=== PATIENT | female | born 1990 | race African-American/Black ===

== ENCOUNTER 2024-02-04 12:58 | Emergency (ER) | payer BC, SELFPAY ==
[2024-02-04 13:00] VITALS: BP 127/76; BMI 34.8
[2024-02-04 13:18] LABS: Urine Albumin Negative (Neg - Trace); Urine Bilirubin Negative (Negative); Urine Character Clear (Clear); Urine Color Yellow; Urine Glucose Negative (Negative); Urine Ketone Negative (Negative); Urine Leukocyte Trace (Negative); Urine Nitrite Negative (Negative); Urine Occult Blood Negative (Negative); Urine Urobilinogen Negative (Neg - 1+); Urine pH 6.5 (5.0-9.0)
[2024-02-04 13:25] LABS: Urine Mucus Few; Urine Squamous Cell >30 /LPF (Few)
[2024-02-04 13:26] LABS: Urine Bacteria Few (Negative)
[2024-02-04 13:56] VITALS: BP 122/61
[2024-02-04 14:00] VITALS: BP 126/63
[2024-02-04 14:11] LABS: % Basophils 0.6 % (0-2); % Eosinophils 2.7 % (0-6); % Immature Granulocytes 0.3 % (0-0.5); % Lymphocytes 28.8 % (20.5-51.1); % Monocytes 9.3 % (1.7-9.3); % Neutrophils 58.3 % (42.2-75.2); Absolute Eosinophils 0.2 10^3/uL (0-0.7); Absolute Monocytes 0.6 10^3/uL (0.1-0.6); Absolute Neutrophils 3.9 10^3/uL (1.4-6.5); Hematocrit 31.9 % (37.0-47.0); Hemoglobin 10.5 g/dL (12.0-16.0); Mean Corp Hgb Conc. 32.9 g/dL (33.0-37.0); Mean Corpuscular Hgb 25.2 pg (27.0-31.0); Mean Corpuscular Volume 76.7 fL (81.0-99.0); Mean Platelet Volume 10.2 fL (7.4-10.4); Nucleated Red Blood Cells % 0 %; Platelet Count 383 10^3/uL (130-400); Red Blood Cell Count 4.16 10^6/uL (4.20-5.40); Red Cell Dist. Width 15.9 % (11.5-14.5); White Blood Cell Count 6.8 10^3/uL (4.8-10.8)
--- NOTE | 2024-02-04 15:09 | ED.GENMED ---
History of Present Illness
General
Chief Complaint: Abdominal Pain
Source: patient
Exam Limitations: none
Time Seen by Provider: 02/04/24 14:02
Nursing documentation reviewed up to this point in time: agreed with
History of Present Illness
History of Present Illness:
33-year-old female without significant past medical history presenting to the emergency department today with concerns of right pelvic discomfort over the past 45 days. 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
and they ordered an outpatient ultrasound but she is unable to secure any appointment in a timely fashion. She had a normal pelvic examination at the time. Denies vomiting fevers change in bowel movements.
Past History
Past History
ED Past Medical History: None
ED Past Surgical History: Other
Social History
Tobacco: Non-smoker
Alcohol: Other
Drug: None
Personal:
Living: with family
Employment: Other
Family History
Family History: Other
Review of Systems
Review of Systems
Allergies reviewed?: Yes
All Other Systems: ROS reviewed and negative except as documented in HPI and ROS
Phy Exam
Physical Exam
Physical Exam:
GENERAL: Alert , in no apparent distress
EYE: pupils equal and reactive
NECK: Supple, no significant adenopathy.
ENT: o/p clr, mmm.
CARDIAC: Regular rate and rhythm .
LUNGS: Clear breath sounds bilaterally, no acute respiratory distress, no wheezes/rales/rhonchi
ABDOMEN: Mild pain to the right lower quadrant and pelvic area. Otherwise soft, without focal tenderness, no r/g, no cvat
NEUROLOGICAL: Alert and oriented, no focal neuro deficits
SKIN: Warm and dry, skin intact.
MUSCULOSKELETAL: No edema, well perfused.
PSYCH: Normal and appropriate interaction.
Course
Orders/Labs/Results
Orders:
Orders
02/04/24 13:03
Test Result ONCE
02/04/24 13:08
Urinalysis Reflex To Culture Urgent
Date Specimen was Collected: 02/04/24
Time Specimen was Collected: 13:03
Urine Microscopic Reflex Cult Urgent
02/04/24 13:44
Complete Blood Count/With Diff Urgent
02/04/24 14:10
US Pelvis W Transvag Combined Urgent
Reason For Exam: right pelvic pain
02/04/24 15:08
Comprehensive Metabolic Panel Urgent
HCG, Serum Qualitative Screen Urgent
Lipase Urgent
02/04/24 16:21
Ketorolac [Toradol] 15 mg IV NOW STA
Abnormal Lab Results
02/04/24 02/04/24
13:08 13:44
RBC 4.16 L 10^6/uL
(4.20-5.40)
Hgb 10.5 L g/dL
(12.0-16.0)
Hct 31.9 L %
(37.0-47.0)
MCV 76.7 L fL
(81.0-99.0)
MCH 25.2 L pg
(27.0-31.0)
MCHC 32.9 L g/dL
(33.0-37.0)
RDW 15.9 H %
(11.5-14.5)
Leukocyte Esterase Rfl Trace A
(Negative)
Urine RBC 3-6 A /HPF
(0-2)
Urine Bacteria (Reflex) Few A
(Negative)
02/04/24 13:44
02/04/24 15:08
Vital Signs
Initial and Last Documented VS:
Initial Vital Signs
Temp Pulse Resp BP Pulse Ox
98.9 F 86 16 127/76 99
02/04/24 13:00 02/04/24 13:00 02/04/24 13:00 02/04/24 13:00 02/04/24 13:00
Last Documented Vital Signs
Temp Pulse Resp BP Pulse Ox
98.9 F 86 16 126/63 99
02/04/24 13:00 02/04/24 13:00 02/04/24 13:00 02/04/24 14:00 02/04/24 15:01
MDM/Problems Addressed
MDM/Problems Addressed:
33-year-old female presenting to the emergency department today with concerns of right pelvic discomfort over the past 45 days or so. On arrival vital signs are normal patient no distress no white count urinalysis without signs of infection.
Ultrasound ordered for further assessment considering ongoing discomfort to the area. Surgical pathology or emergent pathology is unlikely considering ongoing and no significant change of symptoms over 45 days. She claims that her period recently
ended. Mildly anemic here. Other labs unremarkable urinalysis with small amount of red blood cells but large amount of squamous epithelial cells. Ultrasound without emergent findings patient in no distress here normal vital signs stable for close
outpatient follow-up return precautions given.
*Critical Care Note
Total Time (30-74mins, 75-104mins- exclusive of procedures): Not Applicable
ED Attending Note
-
Portions of this chart may have been created with voice recognition software.� Occasional wrong word or��sound alike� substitutions may have occurred due to the inherent limitations of voice recognition software.
Discharge Plan
Departure
Patient Disposition: Home (Routine Discharge)
Date of Disposition: 02/04/24
Time of Disposition: 17:39
Patient with high blood pressure during this ER visit?: No
Condition: Good
Covid-19: Not Applicable
Discharge Problem:
Pelvic pain
Instructions: Pelvic Pain (DC)
Referrals:
NONE,* [Family Provider] -
Activity Restrictions/Additional Instructions:
You came to the emergency department today with concerns of pelvic pain. You had a workup that showed mild anemia but otherwise no emergent findings. Ultrasound was normal. Please follow closely with gynecology and primary care doctor for further
assessment if symptoms are ongoing. Return to the emergency department for any worsening or progressing symptoms.
Interventions
Interventions:
*Risk Screen - Suicide Last Done: 02/04/24 13:00
*General Assessment Last Done: 02/04/24 13:36
*Neglect/Abuse Screening Last Done: 02/04/24 13:00
ED- Fall Risk Assessment Last Done: 02/04/24 13:36
*ED COVID-19 Vaccine History Last Done: 02/04/24 13:36
TF-Uwaezz-Nubkvoxwgm Assessment Last Done: 02/04/24 13:36
Discharge Date and Time
Print Language: SAO TOMEAN
[2024-02-04 15:27] LABS: HCG, Serum Qualitative Screen Negative
[2024-02-04 15:31] LABS: ALT (SGPT) 13 U/L (0-35); AST (SGOT) 20 U/L (14-36); Albumin 3.7 g/dl (3.5-5.0); Alkaline Phosphatase 74 U/L (38-126); Blood Urea Nitrogen 13 mg/dl (7-17); Calcium 9.2 mg/dl (8.4-10.2); Carbon Dioxide 27 mmol/L (22-30); Chloride 105 mmol/L (98-107); Estimated Creatinine Clearance 121 ml/min; Glucose 99 mg/dl (70-99); Potassium 4.2 mmol/L (3.5-5.1); Sodium 138 mmol/L (135-145); Total Bilirubin 0.2 mg/dl (0.2-1.3); Total Protein 6.3 g/dl (6.3-8.2); eGFR > 60.00
[2024-02-04 15:32] LABS: Lipase 98 U/L (23-300)
[2024-02-04] MEDS: TORADOL 15 MG IV (16:23)
== END 2024-02-04 18:03 | disposition home or self-care (01) ==
LOC: EMR 12:58
PROVIDERS: Student in an Organized Health Care Education/Training Program; EMERGENCY PHYSICIAN Emergency Medicine
DX: R10.2 Pelvic and perineal pain (principal); D64.9 Anemia, unspecified
CPT/HCPCS: 99284; 96374; 76830; 76856; 80053; 81003; 81015; 83690; 84703; 85025

== ENCOUNTER 2024-02-28 01:57 | Emergency (ER) | payer BC, SELFPAY ==
[2024-02-28 02:01] VITALS: BP 143/82
[2024-02-28 02:10] VITALS: BMI 36.4
--- NOTE | 2024-02-28 03:58 | ED.GENMED ---
History of Present Illness
General
Chief Complaint: Abdominal Symptoms
Source: patient
Exam Limitations: none
Time Seen by Provider: 02/28/24 02:46
Nursing documentation reviewed up to this point in time: agreed with
History of Present Illness
History of Present Illness:
This is a 33-year-old woman who complains of recurrent episodes of nausea, vomiting, generalized abdominal discomfort, low back pain. She admits to sporadic episodes ongoing for a while and has been following with various specialists without
definitive diagnosis however she does admit to daily marijuana use and cannabis hyperemesis syndrome has been entertained as a cause for her symptoms.
She reports previous ED visits for similar complaints but not for several months and had similar but milder symptoms perhaps a week ago that resolved without medical intervention.
She denies fever nor chills, denies diarrhea or constipation, denies dysuria and urgency and or hematuria. She denies risk of .
She admits to taking hot showers improves her symptoms.
She states IV Zofran in the past has been helpful for her nausea/vomiting.
Last ED visit 1 month ago with complaints of ongoing right pelvic pain, following with [facility], unremarkable pelvic ultrasound at that time. Unremarkable laboratory studies save for mild/stable anemia. Unremarkable urinalysis.
Pelvic pain has since resolved.
Past History
Past History
ED Past Medical History: None and Other (Recurrent episodes of nausea, vomiting thought to be related to cannabis hyperemesis syndrome.)
ED Past Surgical History: Tonsilectomy and Other
Social History
Tobacco: Non-smoker
Alcohol: Other
Drug: Marijuana
Personal:
Living: with family
Employment: Other
Family History
Family History: Other (Noncontributory)
Phy Exam
Physical Exam
Physical Exam:
GENERAL: 33-year-old overweight woman appears her stated age. Initially found in exam room shower, sitting on shower chair morning hot water over her body and admits that hot water/showering temporizes her symptoms.
EYE: pupils equal and round. anicteric
NECK: Supple, nontender, no meningismus, no significant adenopathy.
ENT: oral mucosa is moist. No rhinorrhea.
CARDIAC: Regular rate and rhythm. no murmur.
LUNGS: Clear breath sounds bilaterally, no acute respiratory distress, no wheezes/rales/rhonchi
ABDOMEN: Soft, nondistended, without focal tenderness, no r/g, no cvat. normoactive BS.
BACK: No CVA tenderness, no midline bony tenderness.
NEUROLOGICAL: Alert and oriented x3, no focal neuro deficits. Gait is steady.
SKIN: Warm and dry, normal color, skin intact. No rash.
MUSCULOSKELETAL: No C/C/E. peripheral pulses are full and equal b/l. No palpable tenderness.
PSYCH: Normal and appropriate interaction.
Course
Orders/Labs/Results
Orders:
Orders
02/28/24 03:07
0.9% Sodium Chloride 1000 ml [Nss] 1,000 ml IV BOLUS
Ondansetron Injectable [Zofran] 4 mg IV NOW STA
02/28/24 03:08
Test Result ONCE
02/28/24 03:09
Urinalysis Reflex To Culture Urgent
Urine Drug Abuse Screen Urgent
02/28/24 04:07
Complete Blood Count/With Diff Urgent
Comprehensive Metabolic Panel Urgent
HCG, Serum Qualitative Screen Urgent
Lipase Urgent
02/28/24 05:18
Capsaicin [Zostrix-Hp 0.075% Cream] See Dose Instructions TOPICAL NOW STA
Haloperidol Lactate [Haldol] 2 mg IV NOW STA
Ketorolac [Toradol] 30 mg IV NOW STA
Abnormal Lab Results
02/28/24
04:07
Hgb 11.4 L g/dL
(12.0-16.0)
Hct 34.3 L %
(37.0-47.0)
MCV 77.6 L fL
(81.0-99.0)
MCH 25.8 L pg
(27.0-31.0)
RDW 15.3 H %
(11.5-14.5)
MPV 10.5 H fL
(7.4-10.4)
Absolute Neuts (auto) 8.9 H 10^3/uL
(1.4-6.5)
Absolute Lymphs (auto) 1.0 L 10^3/uL
(1.2-3.4)
Neutrophils % 84.6 H %
(42.2-75.2)
Lymphocytes % 9.7 L %
(20.5-51.1)
Glucose 135 H mg/dl
(70-99)
02/28/24 04:07
02/28/24 04:07
Vital Signs
Initial and Last Documented VS:
Initial Vital Signs
Temp Pulse Resp BP Pulse Ox
98.2 F 64 19 143/82 100
02/28/24 02:01 02/28/24 02:01 02/28/24 02:01 02/28/24 02:01 02/28/24 02:01
Last Documented Vital Signs
Temp Pulse Resp BP Pulse Ox
98.2 F 66 20 138/80 99
02/28/24 02:01 02/28/24 05:20 02/28/24 05:20 02/28/24 05:20 02/28/24 05:20
MDM/Problems Addressed
Differential Diagnosis Includes:
As symptoms are temporized with hot showers, significant concern for cannabis hyperemesis syndrome. Other consideration is acute gastroenteritis, less likely small bowel obstruction. Concern for dehydration/acute kidney injury, electrolyte
abnormality, .
Will initiate IV fluids and given IV dose of Zofran. And will trial capsaicin cream to abdomen.
If Zofran is ineffective we will trial IV Haldol.
Will check labs, urinalysis.
Chronic conditions affecting care: Other (Chronic cannabis use)
Acute Exacerbation and/or Progression of Chronic Illness: Other (Chronic cannabis use)
*Pulse Oximetry
Patient hypoxic: no
*Critical Care Note
Total Time (30-74mins, 75-104mins- exclusive of procedures): Not Applicable
Update Note
Update Note:
02/28/2024 0600 AM
Patient initially noted no improvement in nausea, vomiting, lower back pain after an IV dose of Zofran and IV fluids but currently feeling markedly improved after an IV dose of Haldol and is eager to be discharged to home.
Back pain has resolved. Nausea has resolved. No abdominal pain.
Labs are reassuring.
Delay from pharmacy with capsaicin cream which is being applied currently.
Lengthy discussion with patient urging her to discontinue cannabis use as this is likely cause for her recurrent symptoms.
Follow-up with PCP.
Can continue capsaicin cream as needed. Limit diet to clear liquids today, slowly advance as tolerated.
Return precautions discussed.
ED Attending Note
-
Portions of this chart may have been created with voice recognition software.� Occasional wrong word or��sound alike� substitutions may have occurred due to the inherent limitations of voice recognition software.
Discharge Plan
Departure
Patient Disposition: Home (Routine Discharge)
Date of Disposition: 02/28/24
Time of Disposition: 06:04
Patient with high blood pressure during this ER visit?: No
Condition: Good
Discharge Problem:
Cannabis hyperemesis syndrome concurrent with and due to cannabis dependence
Instructions: Cannabis hyperemesis syndrome
Referrals:
NONE,* [Family Provider] - Call in 1-3 days for appt
Interventions
Interventions:
*Risk Screen - Suicide Last Done: 02/28/24 02:01
*General Assessment Last Done: 02/28/24 02:01
*Neglect/Abuse Screening Last Done: 02/28/24 02:01
ED- Fall Risk Assessment Last Done: 02/28/24 02:10
DX-Pqtzwj-Ozmepjzler Assessment Last Done: 02/28/24 02:10
Discharge Date and Time
Print Language: MAURITIAN
[2024-02-28] MEDS: ZOFRAN 4 MG IV (04:04)
[2024-02-28] MEDS: NSS 1000 IV (04:04)
[2024-02-28 04:24] LABS: % Basophils 0.5 % (0-2); % Eosinophils 0.4 % (0-6); % Immature Granulocytes 0.4 % (0-0.5); % Lymphocytes 9.7 % (20.5-51.1); % Monocytes 4.4 % (1.7-9.3); % Neutrophils 84.6 % (42.2-75.2); Absolute Basophils 0.1 10^3/uL (0-0.2); Absolute Monocytes 0.5 10^3/uL (0.1-0.6); Absolute Neutrophils 8.9 10^3/uL (1.4-6.5); Hematocrit 34.3 % (37.0-47.0); Hemoglobin 11.4 g/dL (12.0-16.0); Mean Corp Hgb Conc. 33.2 g/dL (33.0-37.0); Mean Corpuscular Hgb 25.8 pg (27.0-31.0); Mean Corpuscular Volume 77.6 fL (81.0-99.0); Mean Platelet Volume 10.5 fL (7.4-10.4); Nucleated Red Blood Cells % 0 %; Platelet Count 322 10^3/uL (130-400); Red Blood Cell Count 4.42 10^6/uL (4.20-5.40); Red Cell Dist. Width 15.3 % (11.5-14.5); White Blood Cell Count 10.5 10^3/uL (4.8-10.8)
[2024-02-28 04:29] LABS: HCG, Serum Qualitative Screen Negative
[2024-02-28 04:32] LABS: ALT (SGPT) 16 U/L (0-35); AST (SGOT) 27 U/L (14-36); Albumin 4.5 g/dl (3.5-5.0); Alkaline Phosphatase 80 U/L (38-126); Blood Urea Nitrogen 12 mg/dl (7-17); Calcium 9.5 mg/dl (8.4-10.2); Carbon Dioxide 24 mmol/L (22-30); Chloride 105 mmol/L (98-107); Estimated Creatinine Clearance > 125 ml/min; Glucose 135 mg/dl (70-99); Lipase 97 U/L (23-300); Sodium 138 mmol/L (135-145); Total Bilirubin 0.4 mg/dl (0.2-1.3); Total Protein 7.4 g/dl (6.3-8.2); eGFR > 60.00
[2024-02-28 05:20] VITALS: BP 138/80
[2024-02-28] MEDS: TORADOL 30 MG IV (05:27)
[2024-02-28] MEDS: HALDOL 2 MG IV (05:28)
[2024-02-28] MEDS: ZOSTRIX-HP 0.075% CREAM 1 APPLIC TOPICAL (06:01)
== END 2024-02-28 06:23 | disposition home or self-care (01) ==
LOC: EMR 01:57
PROVIDERS: EMERGENCY PHYSICIAN Emergency Medicine
DX: F12.20 Cannabis dependence, uncomplicated (principal); R11.2 Nausea with vomiting, unspecified; M54.50 Low back pain, unspecified; R10.84 Generalized abdominal pain; D64.9 Anemia, unspecified
CPT/HCPCS: 99284; 96374; 96375 ×2; 96361 ×2; 80053; 83690; 84703; 85025

== ENCOUNTER 2024-06-26 10:34 | Emergency (ER) | payer BC, SELFPAY ==
[2024-06-26 10:43] VITALS: BP 141/80
[2024-06-26] MEDS: TORADOL 15 MG IV (11:14)
[2024-06-26] MEDS: NSS 1000 IV (11:15)
[2024-06-26] MEDS: ZOFRAN 4 MG IV (11:15)
[2024-06-26 11:17] LABS: % Basophils 0.4 % (0-2); % Eosinophils 0.1 % (0-6); % Immature Granulocytes 0.4 % (0-0.5); % Lymphocytes 10.6 % (20.5-51.1); % Monocytes 4.2 % (1.7-9.3); % Neutrophils 84.3 % (42.2-75.2); Absolute Monocytes 0.4 10^3/uL (0.1-0.6); Absolute Neutrophils 8.2 10^3/uL (1.4-6.5); Hematocrit 39.5 % (37.0-47.0); Hemoglobin 13.1 g/dL (12.0-16.0); Mean Corp Hgb Conc. 33.2 g/dL (33.0-37.0); Mean Corpuscular Hgb 25.6 pg (27.0-31.0); Mean Corpuscular Volume 77.3 fL (81.0-99.0); Mean Platelet Volume 10.1 fL (7.4-10.4); Nucleated Red Blood Cells % 0 %; Platelet Count 333 10^3/uL (130-400); Red Blood Cell Count 5.11 10^6/uL (4.20-5.40); Red Cell Dist. Width 15.2 % (11.5-14.5); White Blood Cell Count 9.8 10^3/uL (4.8-10.8)
[2024-06-26 11:36] LABS: HCG, Serum Qualitative Screen Negative
[2024-06-26 11:40] LABS: ALT (SGPT) 17 U/L (0-35); AST (SGOT) 21 U/L (14-36); Albumin 4.6 g/dl (3.5-5.0); Alkaline Phosphatase 90 U/L (38-126); Blood Urea Nitrogen 13 mg/dl (7-17); Calcium 9.5 mg/dl (8.4-10.2); Carbon Dioxide 24 mmol/L (22-30); Chloride 102 mmol/L (98-107); Glucose 125 mg/dl (70-99); Lipase 76 U/L (23-300); Sodium 139 mmol/L (135-145); Total Bilirubin 0.3 mg/dl (0.2-1.3); Total Protein 7.6 g/dl (6.3-8.2); eGFR > 60.00
--- NOTE | 2024-06-26 11:46 | ED.GENMED ---
History of Present Illness
<Florence Maldonado PA-C - Last Filed: 06/26/24 23:06>
General
Chief Complaint: Abdominal Pain
Source: patient
Exam Limitations: none
Time Seen by Provider: 06/26/24 10:56
Nursing documentation reviewed up to this point in time: agreed with
History of Present Illness
History of Present Illness:
Patient is a 34-year-old female presenting the emergency department with crampy abdominal pain associate with nausea and vomiting since this morning. Patient states she woke up this morning with diffuse crampy abdominal pain and frequent
nausea/vomiting. She states that she has had this shaking chills although denies any known fever. Patient states she was feeling completely fine last night. She has normal appetite.
Patient denies any diarrhea, constipation, or urinary symptoms.
She does have a history of very similar symptoms in the past which were attributed to cannabis hyperemesis syndrome. However�patient is adamant that she has not ingested any marijuana in the past 1 to 2 months. That being said�she does report that
the symptoms feel very similar to prior episodes.
LMP about a week ago. Patient denies any other substance abuse. No alcohol use.
Past History
<Florence Maldonado PA-C - Last Filed: 06/26/24 23:06>
Past History
ED Past Medical History: None and Other (Recurrent episodes of nausea, vomiting thought to be related to cannabis hyperemesis syndrome.)
ED Past Surgical History: Tonsilectomy and Other
Social History
Tobacco: Non-smoker
Alcohol: Other
Drug: Marijuana
Personal:
Living: with family
Employment: Other
Family History
Family History: Other (Noncontributory)
Review of Systems
<Florence Maldonado PA-C - Last Filed: 06/26/24 23:06>
Review of Systems
Allergies reviewed?: Yes
All Other Systems: ROS reviewed and negative except as documented in HPI and ROS
Phy Exam
<Florence Maldonado PA-C - Last Filed: 06/26/24 23:06>
Physical Exam
Physical Exam:
Vitals: Mildly hypertensive, otherwise vital signs are stable. Afebrile
General: Patient is writhing in pain, laying in position on my initial examination.
Skin: Warm and dry, no rashes or lesions
Head: Normocephalic, atraumatic
Eyes: Sclera nonicteric. EOMs intact. No nystagmus.
Throat: Protecting airway
Neck: Normal ROM, no cervical spine tenderness, no meningismus
Cardiac: Regular rate and rhythm, no murmurs.
Pulm: Normal respiratory effort, no wheezes, rales, rhonchi heard on exam.
Abdomen: Abdomen soft. Moderate diffuse abdominal tenderness with voluntary guarding. No CVA tenderness
Extremities: No evidence of cyanosis or edema. Palpable distal pulses
Neuro: AAOx3. Grossly intact.
Psychiatric: Normal affect.
Course
<Florence Maldonado PA-C - Last Filed: 06/26/24 23:06>
Orders/Labs/Results
Orders:
Orders
06/26/24 11:02
Test Result ONCE
06/26/24 11:08
Complete Blood Count/With Diff Urgent
Comprehensive Metabolic Panel Urgent
HCG, Serum Qualitative Screen Urgent
Lipase Urgent
06/26/24 11:12
0.9% Sodium Chloride 1000 ml [Nss] 1,000 ml IV BOLUS
Ketorolac [Toradol] 15 mg IV NOW STA
Ondansetron Injectable [Zofran] 4 mg IV NOW STA
06/26/24 11:13
Ketorolac [Toradol] 15 mg .ROUTE .STK-MED ONE
Ondansetron Injectable [Zofran] 4 mg .ROUTE .STK-MED ONE
06/26/24 11:52
HYDROmorphone [Dilaudid] 0.5 mg IV NOW STA
Abnormal Lab Results
06/26/24
11:08
MCV 77.3 L fL
(81.0-99.0)
MCH 25.6 L pg
(27.0-31.0)
RDW 15.2 H %
(11.5-14.5)
Absolute Neuts (auto) 8.2 H 10^3/uL
(1.4-6.5)
Absolute Lymphs (auto) 1.0 L 10^3/uL
(1.2-3.4)
Neutrophils % 84.3 H %
(42.2-75.2)
Lymphocytes % 10.6 L %
(20.5-51.1)
Glucose 125 H mg/dl
(70-99)
06/26/24 11:08
06/26/24 11:08
Vital Signs
Initial and Last Documented VS:
Initial Vital Signs
Temp Pulse Resp BP Pulse Ox
98.6 F 60 16 141/80 99
06/26/24 10:43 06/26/24 10:43 06/26/24 10:43 06/26/24 10:43 06/26/24 10:43
Last Documented Vital Signs
Temp Pulse Resp BP Pulse Ox
98.6 F 60 16 141/80 99
06/26/24 10:43 06/26/24 10:43 06/26/24 10:43 06/26/24 10:43 06/26/24 10:43
<Wes Mahjaan, DO - Last Filed: 06/26/24 12:21>
Orders/Labs/Results
Orders:
Orders
06/26/24 11:02
Test Result ONCE
06/26/24 11:08
Complete Blood Count/With Diff Urgent
Comprehensive Metabolic Panel Urgent
HCG, Serum Qualitative Screen Urgent
Lipase Urgent
06/26/24 11:12
0.9% Sodium Chloride 1000 ml [Nss] 1,000 ml IV BOLUS
Ketorolac [Toradol] 15 mg IV NOW STA
Ondansetron Injectable [Zofran] 4 mg IV NOW STA
06/26/24 11:13
Ketorolac [Toradol] 15 mg .ROUTE .STK-MED ONE
Ondansetron Injectable [Zofran] 4 mg .ROUTE .STK-MED ONE
06/26/24 11:52
HYDROmorphone [Dilaudid] 0.5 mg IV NOW STA
Abnormal Lab Results
06/26/24
11:08
MCV 77.3 L fL
(81.0-99.0)
MCH 25.6 L pg
(27.0-31.0)
RDW 15.2 H %
(11.5-14.5)
Absolute Neuts (auto) 8.2 H 10^3/uL
(1.4-6.5)
Absolute Lymphs (auto) 1.0 L 10^3/uL
(1.2-3.4)
Neutrophils % 84.3 H %
(42.2-75.2)
Lymphocytes % 10.6 L %
(20.5-51.1)
Glucose 125 H mg/dl
(70-99)
06/26/24 11:08
06/26/24 11:08
Vital Signs
Initial and Last Documented VS:
Initial Vital Signs
Temp Pulse Resp BP Pulse Ox
98.6 F 60 16 141/80 99
06/26/24 10:43 06/26/24 10:43 06/26/24 10:43 06/26/24 10:43 06/26/24 10:43
Last Documented Vital Signs
Temp Pulse Resp BP Pulse Ox
98.6 F 60 16 141/80 99
06/26/24 10:43 06/26/24 10:43 06/26/24 10:43 06/26/24 10:43 06/26/24 10:43
<Florence Maldonado PA-C - Last Filed: 06/26/24 23:06>
MDM/Problems Addressed
Differential Diagnosis Includes:
Not limited to: Cannabis hyperemesis syndrome, viral gastroenteritis, appendicitis, cholecystitis, biliary colic, pyelonephritis, diverticulitis, constipation, etc.
MDM/Problems Addressed:
34 year old female with history as documented presenting with severe abdominal pain with intractable nausea/vomiting since this morning. Reports chills but no known fever. Symptoms very similar in nature to previous episodes which were presumed to
be cannabis hyperemesis. Although patient reports no marijuana ingestion in the past 1.5 months. Vitals stable. Patient is afebrile. Abdominal exam challenging given patients significant level of discomfort. Will treat with toradol, zofran, IVF.
Will send basic labs. Will repeat abdominal exam.
Update: Labs noted. No clinically significant abnormalities. negative. In to reassess patient at bedside- no improvement in abdominal pain after toradol. Her abdomen appears soft although moderately tender diffusely. Patient repeatedly
requesting warm shower as that improves symptoms, which would increase suspicion of possible cannabis hyperemesis. Unfortunately - no shower available in patients room. She has received improvement with past history of capsacin cream/ IV haldol per
prior ED notes - although patient declines. Will give low dose narcotic and plan for CT once more comfortable to r/o other infectious etiology given patients significant degree of discomfort.
Chronic conditions affecting care:
N/A
Acute Exacerbation and/or Progression of Chronic Illness:
N/A
<Florence Maldonado PA-C - Last Filed: 06/26/24 23:06>
*Pulse Oximetry
Patient hypoxic: no
*EKG
Interpreted by ED Provider?: NA
*College Sports Coach Interpretation
Rate: College Sports Coach- N/A
*Critical Care Note
Total Time (30-74mins, 75-104mins- exclusive of procedures): Not Applicable
<Florence Maldonado PA-C - Last Filed: 06/26/24 23:06>
Update Note
Update Note:
Update: Unfortunately - prior to my reassessment patient requested to be discharged home so she could take hot shower at home despite no improvement in symptoms. As I was in with another patient at this time -attending physician did evaluate /speak
with patient and recommend CT scan given severity of abdominal pain. Patient states she must go home to take hot shower and understands we may be missing alternative diagnosis without CT scan. Patient called [employer] and left prior to receiving
discharge instructions.
ED Attending Note
<Florence Maldonado PA-C - Last Filed: 06/26/24 23:06>
-
Portions of this chart may have been created with voice recognition software.� Occasional wrong word or��sound alike� substitutions may have occurred due to the inherent limitations of voice recognition software.
<Wes Mahajan DO - Last Filed: 06/26/24 12:21>
ED Attending Note
Patient seen and examined by attending physician: Yes
I performed the substantive portion of visit, reviewed & personally made and approve the management plan that is documented in note by myself or SHALINI.: Yes
ED Attending Note:
I have seen and evaluated the patient with a [id number] encounter. I have spoken to the advance practicer provider and involved in the medical history, the physical exam, medical decision making.
Evaluation and management service: agree unless noted differently below.
Results interpretation: agree unless noted differently below.
Focused HPI: 34-year-old female presenting for evaluation abdominal pain. Patient has had similar episodes in the past with diagnosed with cannabis hyperemesis. However, patient states she has not smoked recently
Physical exam: Uncomfortable, generalized abdominal pain
Medical Decision Making: Patient requesting hot shower. She is currently in a room without a shower. Because of this, patient states she has to leave. Given her discomfort, I suggested that we obtain a CT scan. Patient acknowledged my concern
and wants to leave regardless knowing that we could be missing alternative diagnosis. Patient called herself an [employer]
Discharge Plan
Departure
Patient Disposition: Home (Routine Discharge)
Date of Disposition: 06/26/24
Time of Disposition: 12:57
Patient with high blood pressure during this ER visit?: Yes
Discharge Problem:
Abdominal pain, Nausea & vomiting
Interventions
Interventions:
*Risk Screen - Suicide Last Done: 06/26/24 11:35
*General Assessment Last Done: 06/26/24 11:35
*Neglect/Abuse Screening Last Done: 06/26/24 11:35
*Nursing Disposition Last Done: 06/26/24 12:40
OJ-Fwbgqj-Handarcxoa Assessment Last Done: 06/26/24 11:35
Discharge Date and Time
Discharge Date/Time: 06/26/24 12:40
Print Language: KOREAN
[2024-06-26] MEDS: DILAUDID 0.5 MG IV (12:06)
== END 2024-06-26 12:40 | disposition home or self-care (01) ==
LOC: EMR 10:34
PROVIDERS: Physician Assistant; EMERGENCY PHYSICIAN Student in an Organized Health Care Education/Training Program
DX: R10.9 Unspecified abdominal pain (principal); R11.2 Nausea with vomiting, unspecified
CPT/HCPCS: 99283; 96374; 96375; 96361; 80053; 83690; 84703; 85025

== ENCOUNTER 2024-06-27 07:20 | Emergency (ER) | payer SELFPAY ==
[2024-06-27 07:31] VITALS: BP 115/73
--- NOTE | 2024-06-27 07:47 | ED.GENMED ---
History of Present Illness
General
Chief Complaint: Abdominal Pain
Source: patient
Exam Limitations: none
Time Seen by Provider: 06/27/24 07:20
History of Present Illness
History of Present Illness:
34-year-old female presents with severe lower abdominal pain onset again this morning. She was here yesterday for the same. She was here in February for similar symptoms. She has been diagnosed with cannabis hyperemesis syndrome in the past. She
states she has not used any marijuana products in a month and a half. She notes vomiting but denies fever. No urinary symptoms. Occasionally pain radiates to the back. The pain is constant and cramping in nature. She tried hot water which
usually alleviates her symptoms this did not help. She was seen here yesterday offered a CAT scan however declined and left prior to receiving any discharge instructions.
Past History
Past History
ED Past Medical History: None and Other (Recurrent episodes of nausea, vomiting thought to be related to cannabis hyperemesis syndrome.)
ED Past Surgical History: Tonsilectomy and Other
Social History
Tobacco: Non-smoker
Alcohol: Other
Drug: Marijuana
Personal:
Living: with family
Employment: Other
Family History
Family History: Other (Noncontributory)
Phy Exam
Physical Exam
Physical Exam:
General: Uncomfortable appearing female no acute respiratory distress
HEENT: Normocephalic atraumatic
Heart: Regular rate and rhythm no murmurs
Lungs: Clear no wheeze
Abdomen soft but tender to the lower abdomen bilaterally. There is mild guarding. No rebound tenderness normal bowel sounds nondistended
Extremities: No cyanosis or edema
Course
Orders/Labs/Results
Orders:
Orders
06/27/24 07:41
CMP [Comprehensive Metabolic Panel] Urgent
Complete Blood Count/With Diff Urgent
Lipase Urgent
Urinalysis Reflex To Culture Urgent
Date Specimen was Collected: 06/27/24
Time Specimen was Collected: 07:34
Urine Drug Abuse Screen Urgent
Date Specimen was Collected: 06/27/24
Time Specimen was Collected: 07:34
Urine Microscopic Reflex Cult Urgent
Urine Culture Urgent
IRENE Source: U
Specimen Description:
Date Specimen was Collected: 06/27/24
Time Specimen was Collected: 07:34
06/27/24 07:45
0.9% Sodium Chloride 1000 ml [Nss] 1,000 ml IV BOLUS
Ketorolac [Toradol] 15 mg IV NOW STA
Ondansetron Injectable [Zofran] 4 mg IV NOW STA
06/27/24 08:14
Haloperidol Lactate [Haldol] 2 mg IV NOW STA
Abnormal Lab Results
06/27/24
07:41
MCV 78.8 L fL
(81.0-99.0)
MCH 25.3 L pg
(27.0-31.0)
MCHC 32.1 L g/dL
(33.0-37.0)
RDW 15.6 H %
(11.5-14.5)
Neutrophils % 77.7 H %
(42.2-75.2)
Lymphocytes % 16.1 L %
(20.5-51.1)
Glucose 125 H mg/dl
(70-99)
Leukocyte Esterase Rfl 1+ A
(Negative)
U Marijuana (THC) Screen Positive H
(Negative)
06/27/24 07:41
06/27/24 07:41
Vital Signs
Initial and Last Documented VS:
Initial Vital Signs
Temp Pulse Resp Pulse Ox
97.8 F 82 18 98
06/27/24 07:27 06/27/24 07:27 06/27/24 07:27 06/27/24 07:27
Last Documented Vital Signs
Temp Pulse Resp Pulse Ox
97.8 F 82 18 98
06/27/24 07:27 06/27/24 07:27 06/27/24 07:27 06/27/24 07:27
MDM/Problems Addressed
Differential Diagnosis Includes:
Abdominal pain. Consider appendicitis versus bowel obstruction versus cannabis hyperemesis syndrome. She has been seen here recently for the same. She has had pelvic ultrasounds. She is never had a CAT scan at this hospital patient states she
has had several CAT scans in the workup her discomfort. Her typical remedies are not helping. Recommend CT scan of abdomen given tenderness of lower abdomen. Patient is resistant to this. Will try fluids Zofran Toradol and reevaluation. If
unsuccessful consider Haldol. Offered capsaicin however she declined stating that this did not help last time
*Critical Care Note
Total Time (30-74mins, 75-104mins- exclusive of procedures): Not Applicable
Update Note
Update Note:
Patient reevaluated. She has refused Toradol, capsaicin, Haldol. She is requesting something else for her pain. I recommended her obtaining a CT given her tenderness on exam to evaluate for any other pathology such as appendicitis bowel
obstruction etc. however patient refused this as well. She is requesting something stronger for pain however I advised against using narcotics in this situation. At this time she requested to have her IV taken out so she can leave.
ED Attending Note
-
Portions of this chart may have been created with voice recognition software.� Occasional wrong word or��sound alike� substitutions may have occurred due to the inherent limitations of voice recognition software.
Discharge Plan
Departure
Patient Disposition: Home (Routine Discharge)
Date of Disposition: 06/27/24
Time of Disposition: 08:26
Patient with high blood pressure during this ER visit?: No
Discharge Problem:
Abdominal pain
Instructions: Nausea and Vomiting, Adult (DC)
Referrals:
NONE,* [Family Provider] -
Activity Restrictions/Additional Instructions:
Please return here if needed.
Interventions
Interventions:
*Risk Screen - Suicide Last Done: 06/27/24 07:27
*General Assessment Last Done: 06/27/24 07:33
*Neglect/Abuse Screening Last Done: 06/27/24 07:27
ED- Fall Risk Assessment Last Done: 06/27/24 07:33
*ED COVID-19 Vaccine History Last Done: 06/27/24 07:27
IQ-Nwscxy-Wpuuycrkpf Assessment Last Done: 06/27/24 07:33
Discharge Date and Time
Print Language: ITALIAN
[2024-06-27 07:52] VITALS: BMI 35.9
[2024-06-27] MEDS: ZOFRAN 4 MG IV (07:53)
[2024-06-27 07:54] LABS: % Basophils 0.3 % (0-2); % Eosinophils 0.1 % (0-6); % Immature Granulocytes 0.3 % (0-0.5); % Lymphocytes 16.1 % (20.5-51.1); % Monocytes 5.5 % (1.7-9.3); % Neutrophils 77.7 % (42.2-75.2); Absolute Lymphocytes 1.2 10^3/uL (1.2-3.4); Absolute Monocytes 0.4 10^3/uL (0.1-0.6); Absolute Neutrophils 5.9 10^3/uL (1.4-6.5); Hematocrit 38.3 % (37.0-47.0); Hemoglobin 12.3 g/dL (12.0-16.0); Mean Corp Hgb Conc. 32.1 g/dL (33.0-37.0); Mean Corpuscular Hgb 25.3 pg (27.0-31.0); Mean Corpuscular Volume 78.8 fL (81.0-99.0); Nucleated Red Blood Cells % 0 %; Platelet Count 316 10^3/uL (130-400); Red Blood Cell Count 4.86 10^6/uL (4.20-5.40); Red Cell Dist. Width 15.6 % (11.5-14.5); White Blood Cell Count 7.6 10^3/uL (4.8-10.8)
[2024-06-27] MEDS: NSS 1000 IV (07:56)
[2024-06-27 08:00] VITALS: BP 130/80
--- NOTE | 2024-06-27 08:06 | EDRN ---
Patient returns today with continued c/o mid abdominal pain,nausea and vomiting. Patient stated 'I am not having a CT scan done. I have had them done before and you're not going to find anything. I had an endoscopy and colonoscopy done and they
didn't find anything.You never find anything. I am having pain and need IV fluids and Dilaudid. Toradol did not help.' Patient stated 'I can't remember the name of the GI doctor who did it. They are in [place].' when asked who her GI doctor was. Patient
stated that she stopped smoking marijuana 1 month ago. Patient refused Toradol. Roque Salas PA-C notified.
[2024-06-27 08:10] LABS: ALT (SGPT) 16 U/L (0-35); AST (SGOT) 18 U/L (14-36); Albumin 4.2 g/dl (3.5-5.0); Alkaline Phosphatase 73 U/L (38-126); Blood Urea Nitrogen 15 mg/dl (7-17); Calcium 9.3 mg/dl (8.4-10.2); Carbon Dioxide 23 mmol/L (22-30); Chloride 105 mmol/L (98-107); Estimated Creatinine Clearance 122 ml/min; Glucose 125 mg/dl (70-99); Lipase 189 U/L (23-300); Potassium 4.3 mmol/L (3.5-5.1); Sodium 140 mmol/L (135-145); Total Bilirubin 0.2 mg/dl (0.2-1.3); Total Protein 7.1 g/dl (6.3-8.2); eGFR > 60.00
[2024-06-27 08:17] LABS: Urine Albumin Negative (Neg - Trace); Urine Bilirubin Negative (Negative); Urine Character Very Cloudy (Clear); Urine Color Yellow; Urine Glucose Negative (Negative); Urine Ketone Negative (Negative); Urine Leukocyte 1+ (Negative); Urine Nitrite Negative (Negative); Urine Occult Blood Negative (Negative); Urine Urobilinogen Negative (Neg - 1+)
[2024-06-27 08:25] LABS: Amphetamines Negative (Negative); Barbiturates Negative (Negative); Benzodiazepines Negative (Negative); Buprenorphine Negative (Negative); Cocaine Negative (Negative); Marijuana Positive (Negative); Methadone Negative (Negative); Methamphetamines Negative (Negative); Opiates Negative (Negative); Phencyclidine Negative (Negative); Tricyclic Antidepressants Negative (Negative)
--- NOTE | 2024-06-27 08:32 | EDRN ---
Patient refused Haldol as ordered. Patient wants to leave after speaking to Roque Salas PA-C. Patient continues to refuse testing. Refused to sign signature sheet.
[2024-06-27 08:33] LABS: Urine Squamous Cell 16-20 /LPF (Few); Urine Urothelial Cell 0-2 /LPF (FEW)
--- NOTE | 2024-06-27 08:34 | EDRN ---
Patient refused to have repeat vital signs done prior to leavinfg.
[2024-06-27 08:35] LABS: Urine Amorphous Seen
--- NOTE | 2024-06-27 09:06 | EDRN ---
Patient's limb driver's license found in the room. Called patient x2 but did not answer. Unable to leave message due to mailbox being full. Attempted to call the patient's x2 but did not answer the phone. License given to Edna Chiang Patient
registration to mail to patient.
== END 2024-06-27 08:45 | disposition home or self-care (01) ==
LOC: EMR 07:20
PROVIDERS: Physician Assistant; EMERGENCY PHYSICIAN Emergency Medicine
DX: R10.30 Lower abdominal pain, unspecified (principal); R11.10 Vomiting, unspecified
CPT/HCPCS: 99283; 96374; 96375; 96361; 80053; 80306; 81003; 81015; 83690; 85025; 87086

== ENCOUNTER → 2024-12-27 01:29 | Emergency (ER) | payer SELFPAY ==
[2024-12-27 01:32] VITALS: BP 130/76
[2024-12-27 01:50] LABS: % Basophils 0.3 % (0-2); % Eosinophils 0.1 % (0-6); % Immature Granulocytes 0.3 % (0-0.5); % Lymphocytes 19.8 % (20.5-51.1); % Monocytes 8.6 % (1.7-9.3); % Neutrophils 70.9 % (42.2-75.2); Absolute Lymphocytes 1.9 10^3/uL (1.2-3.4); Absolute Monocytes 0.8 10^3/uL (0.1-0.6); Absolute Neutrophils 6.9 10^3/uL (1.4-6.5); Hematocrit 37.5 % (37.0-47.0); Hemoglobin 12.9 g/dL (12.0-16.0); Mean Corp Hgb Conc. 34.4 g/dL (33.0-37.0); Mean Corpuscular Hgb 27.4 pg (27.0-31.0); Mean Corpuscular Volume 79.6 fL (81.0-99.0); Mean Platelet Volume 10.5 fL (7.4-10.4); Nucleated Red Blood Cells % 0 %; Platelet Count 349 10^3/uL (130-400); Red Blood Cell Count 4.71 10^6/uL (4.20-5.40); Red Cell Dist. Width 13.3 % (11.5-14.5); White Blood Cell Count 9.7 10^3/uL (4.8-10.8)
[2024-12-27 01:59] LABS: HCG, Serum Qualitative Screen Negative
[2024-12-27 02:07] LABS: Blood Urea Nitrogen 18 mg/dl (7-17); Calcium 9.2 mg/dl (8.4-10.2); Carbon Dioxide 24 mmol/L (22-30); Chloride 109 mmol/L (98-107); Glucose 105 mg/dl (70-99); Lipase 192 U/L (23-300); Sodium 141 mmol/L (135-145); eGFR > 60.00
[2024-12-27 02:30] VITALS: BMI 35.4
[2024-12-27 02:35] VITALS: BP 114/65
--- NOTE | 2024-12-27 04:17 | ED.GENMED ---
History of Present Illness
General
Chief Complaint: Abdominal Pain
Source: patient
Time Seen by Provider: 12/27/24 03:01
History of Present Illness
History of Present Illness:
34-year-old female presents to the emergency department with continued abdominal pain nausea and vomiting. She has cannabinoid hyperemesis. She was seen at an outside hospital last evening. She was treated with Bentyl and Zofran and discharged
home in improved condition. She states that the symptoms came back today. Patient last smoked marijuana about 24 hours prior to arrival. She states that she has not been eating normally. She reports a long history of cannabinoid hyperemesis.
She states that she is trying to cut back on marijuana.
Past History
Past History
ED Past Medical History: None and Other (Recurrent episodes of nausea, vomiting thought to be related to cannabis hyperemesis syndrome.)
ED Past Surgical History: Tonsilectomy and Other
Social History
Tobacco: Non-smoker
Alcohol: Other
Drug: Marijuana
Personal:
Living: with family
Employment: Other
Family History
Family History: Other (Noncontributory)
Phy Exam
General Physical Exam
General Presentation: moderate distress
General age: appears older than age
General Skin: warm and dry
General Habitus: normal
General Mental: alert
Pulmonary Exam
Pulmonary Exam: no respiratory distress and no cough
Gastrointestinal Exam
Gastrointestinal Exam: normal bowel sounds and guarding
Palpation: generalized: Mild tenderness
Neurological Exam
Neurological Exam: alert and oriented x3
Musculoskeletal Exam
Musculoskeletal Exam: full ROM and neuro vasc intact
Skin Exam
Skin Exam: normal color and warm/dry
Psychiatric Exam
Psychiatric Exam: normal mood/affect and anxious
Course
Orders/Labs/Results
Orders:
Orders
12/27/24 01:42
Basic Metabolic Panel Urgent
Comment: NO K
Complete Blood Count/With Diff Urgent
HCG, Serum Qualitative Screen Urgent
Comment: ADDED
Lipase Urgent
12/27/24 01:43
Add On- LAB Urgent
Tests Added?: qualitative hcg
12/27/24 03:51
0.9% Sodium Chloride 1000 ml [Nss] 1,000 ml IV BOLUS
Dicyclomine HCl [Bentyl] 20 mg IM NOW STA
Metoclopramide [Reglan] 10 mg IV NOW STA
Abnormal Lab Results
12/27/24
01:42
MCV 79.6 L fL
(81.0-99.0)
MPV 10.5 H fL
(7.4-10.4)
Absolute Neuts (auto) 6.9 H 10^3/uL
(1.4-6.5)
Absolute Monos (auto) 0.8 H 10^3/uL
(0.1-0.6)
Lymphocytes % 19.8 L %
(20.5-51.1)
Chloride 109 H mmol/L
(98-107)
BUN 18 H mg/dl
(7-17)
Glucose 105 H mg/dl
(70-99)
12/27/24 01:42
12/27/24 01:42
Vital Signs
Initial and Last Documented VS:
Initial Vital Signs
Temp Pulse Resp BP Pulse Ox
98.2 F 55 16 130/76 97
12/27/24 01:32 12/27/24 01:32 12/27/24 01:32 12/27/24 01:32 12/27/24 01:32
Last Documented Vital Signs
Temp Pulse Resp BP Pulse Ox
97.7 F 61 16 114/65 97
12/27/24 02:53 12/27/24 04:11 12/27/24 04:11 12/27/24 02:35 12/27/24 04:11
MDM/Problems Addressed
Differential Diagnosis Includes:
Cannabinoid hyperemesis, enteritis, constipation,
MDM/Problems Addressed:
34-year-old female presents with abdominal pain which she states is secondary to cannabinoid hyperemesis. She reports that she presented to the ER last night and received Zofran and Bentyl which did not help her symptoms. Symptoms came back today
and she came to this emergency department. She states that she has had multiple CAT scans and refused a new CAT scan today. She understands that a diagnosis may be missed. She states that she has had this pain 'enough to know that it is from the
marijuana '.
Chronic conditions affecting care:
Marijuana use causing cannabinoid hyperemesis
*Critical Care Note
Total Time (30-74mins, 75-104mins- exclusive of procedures): Not Applicable
Update Note
Update Note:
Patient upset usp through exam stating that we are giving her 'the same meds she gets at all the other hospitals ' to treat her cannabinoid hyperemesis. She signed out AGAINST MEDICAL ADVICE despite only having a partial examination completed.
ED Attending Note
-
Portions of this chart may have been created with voice recognition software.� Occasional wrong word or��sound alike� substitutions may have occurred due to the inherent limitations of voice recognition software.
Discharge Plan
Departure
Patient Disposition: Against Medical Advice
Date of Disposition: 12/27/24
Time of Disposition: 04:22
Discharge Problem:
Abdominal pain
Instructions: Abdominal Pain
Referrals:
[facility] [Provider Group]
[facility] [Outside]
[facility] [Outside]
UNKNOWN - PT DOES,NOT KNOW [Family Provider] -
Activity Restrictions/Additional Instructions:
Thank You for choosing [facility].
It was a pleasure meeting you and taking part in your care. We hope for your continued healing and wellness.
Please read discharge instructions in their entirety. However, they are for general education and may not describe your exact diagnosis at discharge. Information on your ER visit and medical conditions were discussed with you along with appropriate
follow up information...
If indicated, please take your medications as instructed and indicated on discharge paperwork.
Please schedule a follow up appointment as directed. Call to schedule an appointment
Please return to the emergency department with ANY change in, persisting, or worsening of symptoms. If any of your symptoms do not improve, or persist, or become more severe within 6-12 hours, please return to the emergency department for further
care.
Please return to the emergency department if you develop a headache, neck pain/stiffness, fever greater than 100.4F, chest pain, shortness of breath, persistent nausea, vomiting, slurred speech, difficulty walking, numbness/tingling, weakness, signs
of infection or any other symptoms that are worrisome to you.
If you have any questions or concerns please do not hesitate to call the Hospital at .
Interventions
Interventions:
*Risk Screen - Suicide Last Done: 12/27/24 01:34
*General Assessment Last Done: 12/27/24 01:34
*Neglect/Abuse Screening Last Done: 12/27/24 01:34
*ED- Fall Risk Assessment Last Done: 12/27/24 02:53
*ED COVID-19 Vaccine History Last Done: 12/27/24 01:34
*Nursing Disposition Last Done: 12/27/24 04:11
GW-Rthbyq-Nqwxofkupc Assessment Last Done: 12/27/24 02:57
Discharge Date and Time
Print Language: KOREAN
== END | disposition left against medical advice (07) ==
LOC: EMR 01:29
PROVIDERS: EMERGENCY PHYSICIAN Student in an Organized Health Care Education/Training Program
DX: R10.9 Unspecified abdominal pain (principal); R11.2 Nausea with vomiting, unspecified; Z53.29 Procedure and treatment not carried out because of patient's decision for other reasons; F12.20 Cannabis dependence, uncomplicated
CPT/HCPCS: 99283; 80048; 83690; 84703; 85025